=== PATIENT | female | born 1950 ===

== ENCOUNTER → 2018-09-22 14:26 | Outpatient (CLI) | payer OTHER ==
[~2018-09-22 14:26] MED LIST: ATORVASTATIN CA20 MG PO; CLONAZEPAM0.5 MG PO; COZAAR100 MG PO; DOCUSATE SODIU100 MG PO; FORTAMET1000 MG PO; HYDROCODON-ACE1 EAC3 PO; KETO10TA2 PO; LANTUS SOL100 UNIT/1 SUBCUTANEO; NEURONTIN800 MG PO; PERCOCET 5-3251 EACH PO; PLAVIX75 MG PO; TOPROL XL25 M1 PO; TREXALL7.5 MG PO
== END | disposition home or self-care (01) ==
LOC: EKG 14:26
DX: I10 Essential (primary) hypertension (principal); Z01.818 Encounter for other preprocedural examination

== ENCOUNTER 2018-09-24 12:00 | Inpatient (IN) | payer OTHER ==
[~2018-09-24] VITALS: Ht 152.4 cm; Wt 71.2 kg
[~2018-09-24 12:00] MED LIST changes: -CLONAZEPAM0.5 MG PO; -DOCUSATE SODIU100 MG PO; -PERCOCET 5-3251 EACH PO
[2018-09-25] MEDS ORDERED: CLONAZEPAM0.5 MG PO ×2 (12:19)
[2018-09-25] MEDS ORDERED: PERCOCET 5-3251 EACH PO ×2 (12:19)
[2018-09-25] MEDS ORDERED: DOCUSATE SODIU100 MG PO ×2 (12:19)
== END 2018-09-26 20:01 | disposition home or self-care (01) | DRG 454 ==
LOC: O/R 09-25 05:05 → SURH 09-25 05:05
PROVIDERS: ADMIT Orthopaedic Surgery Orthopaedic Surgery of the Spine
PROC: 0RG2071 Fusion of 2 or more Cervical Vertebral Joints with Autologous Tissue Substitute, Posterior Approach, Posterior Column, Open Approach (ICD-10-PCS; 2018-09-25)
PROC: 0RT30ZZ Resection of Cervical Vertebral Disc, Open Approach (ICD-10-PCS; 2018-09-25)
PROC: 07DS3ZZ Extraction of Vertebral Bone Marrow, Percutaneous Approach (ICD-10-PCS; 2018-09-25)
PROC: 4A12X4Z Monitoring of Cardiac Electrical Activity, External Approach (ICD-10-PCS; 2018-09-25)
PROC: 0RG20A0 Fusion of 2 or more Cervical Vertebral Joints with Interbody Fusion Device, Anterior Approach, Anterior Column, Open Approach (ICD-10-PCS; principal; 2018-09-25 13:30)
DX: M47.12 Other spondylosis with myelopathy, cervical region (principal); M50.023 Cervical disc disorder at C6-C7 level with myelopathy; I10 Essential (primary) hypertension; E11.9 Type 2 diabetes mellitus without complications; E03.8 Other specified hypothyroidism